=== PATIENT | female | born 1990 | race Caucasian/White ===

== ENCOUNTER 2020-04-20 18:37 | Emergency (ER) | payer OTHER, SELFPAY ==
[2020-04-20] MEDS ORDERED: HYDROCOD 2.5mg-ACETAMIN 108mg/5mL Soln ONE (21:02)
[2020-04-20] MEDS ORDERED: ONDANSETRON 4 MG (ODT) TAB ONE (21:03)
[2020-04-20] MEDS ORDERED: IBUPROFEN 400 MG TAB ONE (21:03)
--- NOTE | 2020-04-20 22:01 | ER ---
Nurse's Notes [facility] Name: Ashley Weinstein Age: 30 yrs Sex: Female : 1990 Arrival Date: 04/20/2020 Time: 18:45 Bed 28 Private MD: Diagnosis: Streptococcal pharyngitis Presentation: 04/20 19:05 Chief complaint: Patient states: Sore throat, fever, swelling to lymph nodes since ll1 Friday. Fever 104 at home, sleeping a lot. Coronavirus screen: Client denies travel out of the [place] in the last 14 days. chills, congestion, cough unrelated to allergies, fatigue, fever, headache, sore throat, Client presents with at least one sign or symptom that may indicate coronavirus-19. Standard/surgical mask placed on the client. Ebola Screen: Patient denies travel to an Ebola-affected area in the 21 days before illness onset. Initial Sepsis Screen: Does the patient meet any 2 criteria? HR > 90 bpm. No. Patient's initial sepsis screen is negative. Does the patient have a suspected source of infection? Yes: Other: sore throat. Risk Assessment: Do you want to hurt yourself or someone else? Patient reports no desire to harm self or others. Onset of symptoms was April 17, 2020. 19:05 Method Of Arrival: Ambulatory ll1 19:05 Acuity: ASA 4 ll1 Historical: - Allergies: 19:10 No Known Allergies; ll1 - PMHx: 19:10 None; ll1 - PSHx: 19:10 None; ll1 - Immunization history:: Flu vaccine is not up to date. - Social history:: Smoking status: Patient reports the use of cigarette tobacco products, smokes one-half pack cigarettes per day. Screenin:23 Abuse screen: Denies threats or abuse. Nutritional screening: No deficits noted. vg1 Tuberculosis screening: No symptoms or risk factors identified. Fall Risk No fall in past 12 months (0 pts). No secondary diagnosis (0 pts). No IV (0 pts). Ambulatory Aid- None/Bed Rest/Nurse Assist (0 pts). Gait- Normal/Bed Rest/Wheelchair (0 pts) Mental Status- Oriented to own ability (0 pts). Total Lance Fall Scale indicates No Risk (0-24 pts). Assessment: 20:21 General: Appears in no apparent distress. comfortable, Behavior is calm, cooperative. vg1 Pain: Complains of pain in throat. Pain currently is 10 out of 10 on a pain scale. Pain began about four days ago. Neuro: Level of Consciousness is awake, alert, obeys commands, Oriented to person, place, time, situation. Cardiovascular: Patient's skin is warm and dry. Respiratory: Airway is patent Respiratory effort is even, unlabored, Respiratory pattern is regular, symmetrical, Breath sounds are clear bilaterally. GI: No signs and/or symptoms were reported involving the gastrointestinal system. : No signs and/or symptoms were reported regarding the genitourinary system. EENT: Throat is reddened has enlarged tonsils. Derm: Skin is intact, is healthy with good turgor. Musculoskeletal: Circulation, motion, and sensation intact. Vital Signs: 19:05 BP 128 / 72; Pulse 100; Resp 17; Temp 100.4; Pulse Ox 100% ; Weight 78.47 kg; Height 5 ll1 ft. 7 in. (170.18 cm); Pain 9/10; 20:22 BP 137 / 87; Pulse 98; Resp 16; Temp 99.2(O); Pulse Ox 100% on R/A; vg1 19:05 Body Mass Index 27.10 (78.47 kg, 170.18 cm) ll1 ED Course: 18:45 Patient arrived in ED. mr 19:09 Triage completed. ll1 19:10 Arm band placed on. ll1 20:15 Valencia Mandel RN is Primary Nurse. vg1 20:16 Taran Gooden PA is PHCP. cp 20:16 Taran Keen MD is Attending Physician. cp 20:23 Patient has correct armband on for positive identification. Bed in low position. Call vg1 light in reach. Side rails up X 1. 21:03 COVID swab sent to lab. Flu and/or RSV swab sent to lab. Strep swab sent to lab. vg1 22:21 No provider procedures requiring assistance completed. Patient did not have IV access vg1 during this emergency room visit. Administered Medications: 21:03 Drug: Lortab Liquid 10 ml {Note: rass0.} Route: PO; vg1 22:21 Follow up: Response: Pain is decreased; RASS: Alert and Calm (0) vg1 21:03 Drug: Zofran (Ondansetron) 4 mg Route: PO; vg1 22:21 Follow up: Response: No adverse reaction vg1 21:03 Drug: Ibuprofen 800 mg Route: PO; vg1 22:21 Follow up: Response: Pain is decreased vg1 22:20 Drug: Augmentin 875 mg Route: PO; vg1 22:21 Follow up: Response: Medication administered at discharge. vg1 Outcome: 22:01 Discharge ordered by . angela 22:21 Discharged to home ambulatory. vg1 22:21 Condition: stable 22:21 Discharge instructions given to patient, Instructed on discharge instructions, follow up and referral plans. medication usage, Demonstrated understanding of instructions, follow-up care, medications, Prescriptions given X 3. 22:22 Patient left the ED. vg1 Signatures: Lissy Eastman Corey, PA PA cp Garcia, Victoria, RN RN vg1 Chepe Quach RN RN ll1
--- NOTE | 2020-04-20 22:01 | EDPHYS ---
Physician Documentation [facility] Name: Ashley Weinstein Age: 30 yrs Sex: Female : 1990 Arrival Date: 04/20/2020 Time: 18:45 Bed 28 Private MD: Taran Hair HPI: 04/20 20:35 This 30 yrs old Female presents to ER via Ambulatory with complaints of Sore cp Throat. 20:35 The patient presents with sore throat, dysphagia, of both solids and liquids. Onset: cp The symptoms/episode began/occurred 4 day(s) ago. Associated signs and symptoms: Pertinent positives: cough, fever, Pertinent negatives chest pain, diarrhea, vomiting. Historical: - Allergies: 19:10 No Known Allergies; ll1 - PMHx: 19:10 None; ll1 - PSHx: 19:10 None; ll1 - Immunization history:: Flu vaccine is not up to date. - Social history:: Smoking status: Patient reports the use of cigarette tobacco products, smokes one-half pack cigarettes per day. ROS: 20:45 Constitutional: Positive for fatigue, fever. cp 20:45 Eyes: Negative for injury, pain, redness, and discharge. cp 20:45 ENT: Positive for difficulty swallowing, ear pain, sore throat, Negative for drainage cp from ear(s), rhinorrhea, sinus congestion, sinus pain, difficulty handling secretions. 20:45 Respiratory: Positive for cough, Negative for shortness of breath, wheezing. cp 20:45 Abdomen/GI: Negative for abdominal pain, nausea, vomiting, and diarrhea, constipation. 20:45 : Negative for urinary symptoms. 20:45 Skin: Negative for rash. 20:45 Neuro: Negative for altered mental status, headache, weakness. 20:45 All other systems are negative. Exam: 20:50 Constitutional: The patient appears in no acute distress, alert, awake, non-toxic, well cp developed, well nourished. 20:50 Head/Face: Normocephalic, atraumatic. cp 20:50 Eyes: Periorbital structures: appear normal, Conjunctiva: normal, no exudate, no injection, Sclera: no appreciated abnormality, Lids and lashes: appear normal, bilaterally. 20:50 ENT: External ear(s): are unremarkable, Ear canal(s): are normal, clear, TM's: bulging, is not appreciated, bilaterally, dullness, bilaterally, erythema, is not appreciated, bilaterally, Nose: is normal, Mouth: Lips: moist, Oral mucosa: moist, Posterior pharynx: Airway: no evidence of obstruction, patent, Tonsils: with erythema, with exudate, swelling, is not appreciated, erythema, that is marked. 20:50 Neck: Lymph nodes: lymphadenopathy is appreciated, anterior cervical nodes. 20:50 Chest/axilla: Inspection: normal, Palpation: is normal, no crepitus, no tenderness. 20:50 Cardiovascular: Rate: tachycardic, Rhythm: regular. 20:50 Respiratory: the patient does not display signs of respiratory distress, Respirations: normal, no use of accessory muscles, no retractions, labored breathing, is not present, Breath sounds: are clear throughout, no decreased breath sounds, no stridor, no wheezing. 20:50 Abdomen/GI: Inspection: abdomen appears normal, Palpation: abdomen is soft and non-tender, in all quadrants. 20:50 Skin: no rash present. 20:50 Neuro: Orientation: to person, place \T\ time. Mentation: is normal, Motor: moves all fours, strength is normal. Vital Signs: 19:05 BP 128 / 72; Pulse 100; Resp 17; Temp 100.4; Pulse Ox 100% ; Weight 78.47 kg; Height 5 ll1 ft. 7 in. (170.18 cm); Pain 9/10; 20:22 BP 137 / 87; Pulse 98; Resp 16; Temp 99.2(O); Pulse Ox 100% on R/A; vg1 19:05 Body Mass Index 27.10 (78.47 kg, 170.18 cm) ll1 MDM: 20:29 Patient medically screened. cp 21:00 Differential diagnosis: rufino-lovett virus, group A strep tonsillitis, influenza, cp peritonsillar abscess pharyngitis, retropharyngeal abcess tonsillitis, upper respiratory infection, uvulitis. 22:00 Data reviewed: vital signs, nurses notes, lab test result(s). cp 22:00 Counseling: I had a detailed discussion with the patient and/or guardian regarding: the cp historical points, exam findings, and any diagnostic results supporting the discharge/admit diagnosis, lab results, to return to the emergency department if symptoms worsen or persist or if there are any questions or concerns that arise at home. Response to treatment: the patient's symptoms have markedly improved after treatment, VSS. Pain improved with meds. Patient tolerating po fluids and meds. Will discharge to home for continued monitoring. 04/20 20:31 Order name: Strep; Complete Time: 22:00 cp 04/20 21:59 Interpretation: Reviewed. cp Administered Medications: 21:03 Drug: Lortab Liquid 10 ml {Note: rass0.} Route: PO; vg1 22:21 Follow up: Response: Pain is decreased; RASS: Alert and Calm (0) vg1 21:03 Drug: Zofran (Ondansetron) 4 mg Route: PO; vg1 22:21 Follow up: Response: No adverse reaction vg1 21:03 Drug: Ibuprofen 800 mg Route: PO; vg1 22:21 Follow up: Response: Pain is decreased vg1 22:20 Drug: Augmentin 875 mg Route: PO; vg1 22:21 Follow up: Response: Medication administered at discharge. vg1 Disposition: 04/20/20 22:01 Discharged to Home. Impression: Streptococcal pharyngitis. - Condition is Stable. - Discharge Instructions: Strep Throat. - Prescriptions for Lidocaine Viscous - take 5 milliliter by ORAL route every 4-6 hours As needed; 1 bottle. Augmentin 875- 125 mg Oral Tablet - take 1 tablet by ORAL route every 12 hours for 10 days; 20 tablet. Ibuprofen 800 mg Oral Tablet - take 1 tablet by ORAL route every 8 hours As needed take with food; 30 tablet. - Medication Reconciliation Form, Thank You Letter, Antibiotic Education, Prescription Opioid Use form. - Follow up: Private Physician; When: 1 - 2 days; Reason: Worsening of condition. - Problem is new. - Symptoms have improved. Addendum: 04/24/2020 06:09 Co-signature as Attending Physician, Taran Keen MD I agree with the assessment and c naranjo plan of care. Signatures: Dispatcher [employer] EDDE Taran Keen MD MD cha Page, Corey, PA PA cp Garcia, Victoria, RN RN vg1 Chepe Quach RN RN ll1 Corrections: (The following items were deleted from the chart) 04/20 21:43 20:31 Influenza Screen (A \T\ B)+BA.LAB.BRZ ordered. EDMS EDMS 21:44 20:31 CORONAVIRUS+MR.LAB.BRZ ordered. EDMS EDMS 22:22 22:01 04/20/2020 22:01 Discharged to Home. Impression: Streptococcal pharyngitis. vg1 Condition is Stable. Forms are Medication Reconciliation Form, Thank You Letter, Antibiotic Education, Prescription Opioid Use. Follow up: Private Physician; When: 1 - 2 days; Reason: Worsening of condition. Problem is new. Symptoms have improved. cp
[2020-04-20 22:27] VITALS: O2SAT 100
[2020-04-20 22:28] VITALS: BP 137/87; TEMP 99.2
[2020-04-20] MEDS ORDERED: AMOX/K CLAV 875 MG TAB ONE (22:30)
[2020-04-20 22:37] LABS: SARS-COV-2 RT PCR NEGATIVE (NEGATIVE)
== END 2020-04-20 22:22 | disposition home or self-care (01) ==
LOC: ER 18:37
DX: J02.0 Streptococcal pharyngitis (principal); F17.210 Nicotine dependence, cigarettes, uncomplicated
CPT/HCPCS: 0240U; 87081; 99283

== ENCOUNTER 2021-07-26 09:34 | Emergency (ER) | payer SELFPAY ==
--- OUTSIDE RECORDS SUMMARY | 2021-07-26 09:37 | XMS REPORT | Continuity of Care Document ---
:1990 Author Organization [facility] t Address [address] [place] [address] Care Team Providers Name Role Phone Rianna ARELLANO Attending Clinician Unavailable Payers Payer Name Policy Type Policy Number Effective Date Expiration Date S our MEDICAID SSI PENDING 2020 PENDING 00:00:00 Problems This patient has no known problems. Allergies, Adverse Reactions, Alerts Allergy Allergy Status Severity Reaction(s) Onset Inactive Treating Comm ents Source Name Type Date Date Clinician NO KNOWN Drug Active [facility]ERGIE [facility] Medications This patient has no known medications. Procedures This patient has no known procedures. Encounters Start End Encounter Admission Attending Care Care Encounter Source Date/Time Date/Time Type Type Clinicians Facility Department ID 2020-02-12 2020-02-12 Emergency X EILEEN [facility] ERT [id number] [facility] 11:05:00 11:05:00 DELILAH [facility] 2019-12-13 2019-12-13 Emergency X [facility] ERT [id number] [facility] 16:24:00 16:24:00 [facility] Results This patient has no known results.
--- NOTE | 2021-07-26 10:12 | ER ---
Nurse's Notes [facility] Name: Ashley Weinstein Age: 31 yrs Sex: Female : 1990 Arrival Date: 07/26/2021 Time: 09:37 Bed 10 Private MD: Diagnosis: Dental Pain;Dental decay Presentation: 07/26 09:57 Chief complaint: Patient states: migraine right now, right side of face is swollen and iw left side of face hurts, has bad teeth. Coronavirus screen: At this time, the client does not indicate any symptoms associated with coronavirus-19. Ebola Screen: Patient negative for fever greater than or equal to 101.5 degrees Fahrenheit, and additional compatible Ebola Virus Disease symptoms Patient denies exposure to infectious person. Patient denies travel to an Ebola-affected area in the 21 days before illness onset. No symptoms or risks identified at this time. Initial Sepsis Screen: Does the patient meet any 2 criteria? No. Patient's initial sepsis screen is negative. Does the patient have a suspected source of infection? No. Patient's initial sepsis screen is negative. Risk Assessment: Do you want to hurt yourself or someone else? Patient reports no desire to harm self or others. Onset of symptoms was July 21, 2021. 09:57 Method Of Arrival: Ambulatory iw 09:57 Acuity: ASA 4 iw Triage Assessment: 10:40 Pain: Also complains of no other associated symptoms. iw Historical: - Allergies: 09:59 No Known Allergies; iw Screenin:00 Abuse screen: Denies threats or abuse. Denies injuries from another. Nutritional iw screening: No deficits noted. Tuberculosis screening: No symptoms or risk factors identified. Fall Risk None identified. Assessment: 09:59 General: Appears in no apparent distress. Behavior is calm, cooperative. Pain: iw Complains of pain in right cheek and right jaw. Neuro: Level of Consciousness is awake, alert, obeys commands, Oriented to person, place, time, situation. Respiratory: Respiratory effort is even, unlabored, Respiratory pattern is regular. EENT: Poor dentition noted. Derm: Skin is intact, is healthy with good turgor. Musculoskeletal: Range of motion: intact in all extremities. Vital Signs: 09:57 BP 137 / 76; Pulse 103; Resp 18; Temp 98.4; Pulse Ox 100% on R/A; iw ED Course: 09:37 Patient arrived in ED. mr 09:59 Triage completed. iw 09:59 Arm band placed on. iw 10:00 Niall Fragoso DO is Attending Physician. ms3 10:00 Kirsten Gross, RN is Primary Nurse. iw 10:11 Ziggy Rosario DDS is Referral Physician. ms3 10:41 No provider procedures requiring assistance completed. Patient did not have IV access iw during this emergency room visit. Administered Medications: No medications were administered Medication: 19:16 VIS not applicable for this client. iw Outcome: 10:12 Discharge ordered by MD. ms3 10:41 Discharged to home ambulatory. iw 10:41 Condition: good 10:41 Discharge instructions given to patient, Instructed on discharge instructions, follow up and referral plans. Demonstrated understanding of instructions, follow-up care, medications, Prescriptions given X 1. 10:42 Patient left the ED. iw Signatures: Jaren Lissy mr Kirsten Gross, RN RN iw Niall Fragoso DO DO ms3
--- NOTE | 2021-07-26 10:12 | EDPHYS ---
Physician Documentation [facility] Name: Ashley Weinstein Age: 31 yrs Sex: Female : 1990 Arrival Date: 07/26/2021 Time: 09:37 Bed 10 Private MD: ED Physician Niall Fragoso HPI: 07/26 10:13 This 31 yrs old Female presents to ER via Ambulatory with complaints of Mouth Problem, ms3 Headache. 10:13 The patient presents with broken tooth/teeth, pain, swelling. The problem is located in ms3 the right jaw. Onset: The symptoms/episode began/occurred yesterday, Left sided dental pain x 1 week. Duration: The symptoms are chronic. Modifying factors: The symptoms are alleviated by nothing, the symptoms are aggravated by nothing. Associated signs and symptoms: Pertinent positives: pain, Pertinent negatives: chills. Severity of symptoms: At their worst the symptoms were moderate, a " 7" out of "10", in the emergency department the symptoms are unchanged. Historical: - Allergies: 09:59 No Known Allergies; iw ROS: 10:13 Constitutional: Negative for fever, and chills. Neck: Negative for injury, pain, and ms3 swelling, Cardiovascular: Negative for chest pain, and palpitations. Respiratory: Negative for shortness of breath, cough, wheezing, and pleuritic chest pain, Abdomen/GI: Negative for abdominal pain, nausea, vomiting, diarrhea, and constipation, MS/Extremity: Negative for injury and deformity, Skin: Negative for injury, rash, and discoloration. 10:13 ENT: Positive for dental pain, Gum pain Teeth pain 10:13 All other systems are negative. Exam: 10:13 Constitutional: This is a well developed, well nourished patient who is awake, alert, ms3 and in no acute distress. Eyes: Pupils equal round and reactive to light, extra-ocular motions intact. Lids and lashes normal. Conjunctiva and sclera are non-icteric and not injected. Periorbital areas with no swelling, redness, or edema. Neck: Trachea midline, no cervical lymphadenopathy. Supple, full range of motion without nuchal rigidity, or vertebral point tenderness. No Meningismus. Chest/axilla: Normal chest wall appearance and motion. Nontender with no deformity. Cardiovascular: Regular rate and rhythm with a normal S1 and S2. No gallops, murmurs, or rubs. Normal PMI, no JVD. No pulse deficits. Respiratory: Lungs have equal breath sounds bilaterally, clear to auscultation and percussion. No rales, rhonchi or wheezes noted. No increased work of breathing, no retractions or nasal flaring. Abdomen/GI: Soft, non-tender, with normal bowel sounds. No distension or tympany. No guarding or rebound. No evidence of tenderness throughout. Skin: Warm, dry with normal turgor. Normal color with no rashes, no lesions, and no evidence of cellulitis. Psych: Awake, alert, with orientation to person, place and time. Behavior, mood, and affect are within normal limits. 10:13 ENT: Dental exam: dental caries, that is severe, diffusely, gum swelling, that is moderate, diffusely, missing teeth, pain. Vital Signs: 09:57 BP 137 / 76; Pulse 103; Resp 18; Temp 98.4; Pulse Ox 100% on R/A; iw MDM: 10:06 Patient medically screened. ms3 10:13 Differential diagnosis: dental caries, gingivitis, acute necrotizing ulcerative ms3 gingivitis. Data reviewed: vital signs, nurses notes. Counseling: I had a detailed discussion with the patient and/or guardian regarding: the historical points, exam findings, and any diagnostic results supporting the discharge/admit diagnosis, the need for outpatient follow up, to return to the emergency department if symptoms worsen or persist or if there are any questions or concerns that arise at home. ED course: Discussed physical exam findings with patient. Patient to follow-up with dentist in 2-3 days. Patient understands and agrees with plan. All questions were answered. Return precautions discussed include worsening symptoms, or any other concerns. . Administered Medications: No medications were administered Disposition Summary: 07/26/21 10:12 Discharge Ordered Location: Home ms3 Condition: Stable ms3 Diagnosis - Dental Pain ms3 - Dental decay ms3 Followup: ms3 - With: Ziggy Rosario DDS - When: 2 - 3 days - Reason: Recheck today's complaints Discharge Instructions: - Discharge Summary Sheet ms3 - Dental Pain, [id number] ms3 Forms: - Medication Reconciliation Form ms3 - Thank You Letter ms3 - Antibiotic Education ms3 - Prescription Opioid Use ms3 Prescriptions: - penicillin V potassium 500 mg Oral tablet - take 1 tablet by ORAL route every 6 hours for 10 days; 40 tablet; Refills: 0, jmm Product Selection Permitted Signatures: Kirsten Gross RN RN iw Niall Fragoso DO DO ms3
[2021-07-26 11:45] VITALS: BP 137/76; TEMP 98.4; O2SAT 100
== END 2021-07-26 10:42 | disposition home or self-care (01) ==
LOC: ER 09:34
DX: K02.9 Dental caries, unspecified (principal)
CPT/HCPCS: 99282

== ENCOUNTER 2021-08-22 22:15 | Emergency (ER) | payer SELFPAY ==
--- OUTSIDE RECORDS SUMMARY | 2021-08-22 22:18 | XMS REPORT | Continuity of Care Document ---
:1990 Author Organization [facility] t Address [facility] [place] [address] Care Team Providers Name Role Phone Rianna ARELLANO Attending Clinician Unavailable Payers Payer Name Policy Type Policy Number Effective Date Expiration Date S [facility] [place] [place] MEDICAID SSI PENDING 2020 PENDING 00:00:00 Problems This patient has no known problems. Allergies, Adverse Reactions, Alerts Allergy Allergy Status Severity Reaction(s) Onset Inactive Treating Comm ents Source Name Type Date Date Clinician NO KNOWN Drug Active [facility] ALLERGIE Class [facility] Medications This patient has no known medications. Procedures This patient has no known procedures. Encounters Start End Encounter Admission Attending Care Care Encounter Source Date/Time Date/Time Type Type Clinicians Facility Department ID 2020-02-12 2020-02-12 Emergency X EILEEN [facility] ERT [id number] [facility] 11:05:00 11:05:00 DELILAH [facility] 2019-12-13 2019-12-13 Emergency X [facility] ERT [id number] [facility] 16:24:00 16:24:00 [facility] Results This patient has no known results.
[2021-08-22 23:39] LABS: Urine Blood 3+ (Negative); Urine Glucose Negative (Negative); Urine Protein 1+ (Negative); Urine Specific Gravity >=1.030 (1.005-1.030); Urine pH 6.5 (5.0-7.0)
--- NOTE | 2021-08-23 00:45 | ER ---
Nurse's Notes [facility] Name: Ashley Weinstein Age: 31 yrs Sex: Female : 1990 Arrival Date: 08/22/2021 Time: 22:19 Bed 10 Private MD: Diagnosis: Contusion of lower back and pelvis, initial encounter;Contusion of front wall of thorax Presentation: 08/22 22:54 Chief complaint: Patient states: "I fell about a week ago and now I can't sit because vc1 my tail bone hurts so bad and the left side of my ribs hurt.":. Care prior to arrival: None. 22:54 Acuity: ASA 3 vc1 22:54 Method Of Arrival: Ambulatory vc1 22:57 Coronavirus screen: Vaccine status: Patient reports being unvaccinated. At this time, vc1 the client does not indicate any symptoms associated with coronavirus-19. Ebola Screen: No symptoms or risks identified at this time. Initial Sepsis Screen: Does the patient meet any 2 criteria? HR > 90 bpm. No. Patient's initial sepsis screen is negative. Does the patient have a suspected source of infection? No. Patient's initial sepsis screen is negative. Risk Assessment: Do you want to hurt yourself or someone else? Patient reports no desire to harm self or others. Onset of symptoms is unknown. 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 - Social history:: Smoking status: Patient reports the use of cigarette tobacco products, smokes one pack cigarettes per day. - Family history:: not pertinent. - Hospitalizations: : No recent hospitalization is reported. Screenin:01 Abuse screen: Denies threats or abuse. Nutritional screening: No deficits noted. vc1 Tuberculosis screening: No symptoms or risk factors identified. Fall Risk None identified. Assessment: 22:54 General: Appears in no apparent distress. uncomfortable, Behavior is calm, cooperative, vc1 appropriate for age. Pain: Complains of pain in coccyx Pain currently is 8 out of 10 on a pain scale. at worst was 10 out of 10 on a pain scale. Neuro: Level of Consciousness is awake, alert, obeys commands, Oriented to person, place, time, situation, Appropriate for age. EENT: No deficits noted. Cardiovascular: No deficits noted. Respiratory: Airway is patent Respiratory effort is even, unlabored, Respiratory pattern is regular, symmetrical. GI: No signs and/or symptoms were reported involving the gastrointestinal system. : No signs and/or symptoms were reported regarding the genitourinary system. Musculoskeletal: Reports pain in coccyx and left side of ribs. Vital Signs: 22:57 BP 125 / 74; Pulse 96; Resp 18; Temp 98.4; Pulse Ox 100% ; Weight 68.04 kg; Height 5 vc1 ft. 7 in. (170.18 cm); Pain 10/10; 22:57 Body Mass Index 23.49 (68.04 kg, 170.18 cm) vc1 ED Course: 22:19 Patient arrived in ED. ja2 22:22 Josh Abad MD is Attending Physician. rn 22:55 Triage completed. vc1 23:00 Arm band placed on left wrist. vc1 23:01 Patient has correct armband on for positive identification. vc1 06/09 00:17 XRAY Ribs LEFT In Process Unspecified. EDMS 00:17 XRAY Pelvis In Process Unspecified. EDMS 00:17 XRAY Sacrum And Coccyx In Process Unspecified. EDMS 00:49 Sol Zaidi RN is Primary Nurse. lp1 00:58 No provider procedures requiring assistance completed. Patient did not have IV access lp1 during this emergency room visit. Administered Medications: 00:54 Drug: HYDROcodone-acetaminophen 5 mg-325 mg 1 tabs Route: PO; lp1 00:58 Follow up: Response: Medication administered at discharge. lp1 Medication: 00:58 VIS not applicable for this client. lp1 Outcome: 00:44 Discharge ordered by . rn 00:58 Discharged to home ambulatory, with significant other. lp1 00:58 Condition: good 00:58 Discharge instructions given to patient, Instructed on discharge instructions, follow up and referral plans. Demonstrated understanding of instructions, follow-up care. 00:59 Patient left the ED. lp1 Signatures: Dispatcher [employer] EDJosh Oh MD MD rn Pena, Laura, RN RN lp1 Christina Vee2 Erica Camejo RN RN vc1
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
[2021-08-23] MEDS ORDERED: HYDROCODONE/APAP 5/325 MG TAB ONE (01:00)
[2021-08-23 01:28] VITALS: BP 125/74; TEMP 98.4; O2SAT 100
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
== END 2021-08-23 00:59 | disposition home or self-care (01) ==
LOC: ER 22:15
DX: S30.0XXA Contusion of lower back and pelvis, initial encounter (principal); S20.212A Contusion of left front wall of thorax, initial encounter; F17.210 Nicotine dependence, cigarettes, uncomplicated
CPT/HCPCS: 72170; 72220; 81003; 99283